=== PATIENT | female | born 1960 | race Caucasian/White ===

== ENCOUNTER 2018-05-30 14:15 | Outpatient (CLI) | payer BC | END 2018-05-30 14:30 | LOC: D.MAMMO 14:15 | DX: Z12.31 Encounter for screening mammogram for malignant neoplasm of breast (principal) ==

== ENCOUNTER 2018-08-26 23:44 | Emergency (ER) | payer BC ==
[~2018-08-26] VITALS: Ht 157.5 cm; Wt 59.1 kg
[2018-08-26 23:48] VITALS: Ht 157.5 cm; Wt 59.1 kg
[2018-08-26] MEDS ORDERED: PAXIL20 MG (23:50)
[2018-08-26] MEDS ORDERED: ALEVE220 MG PO (23:50)
[2018-08-26] MEDS ORDERED: INVOKANA100 MG (23:54)
[2018-08-27 00:24] LABS: BASOPHILS 0.3 % (0-2); EOSINOPHILS 1.8 % (0-7); IMMATURE GRANULOCYTES 0.6 % (0-5); LYMPHOCYTES 26.8 % (15-50); MCH 30.5 pg (26.0-34.0); MCHC 35.6 g/dL (31.0-37.0); MCV 85.9 fL (80.0-100.0); MEAN PLATELET VOLUME 10.6 fL (7.4-10.4); MONOCYTES 6.4 % (2-11); NEUTROPHILS 64.1 % (40-80); PLATELET COUNT 286 10x3/uL (130-400); RBC 5.24 10x6/uL (4.00-5.40); RDW 12.4 % (11.5-14.5); WBC 8.7 10x3/uL (4.8-10.8)
[2018-08-27 00:31] LABS: APPEARANCE CLEAR (CLEAR); BILIRUBIN NEGATIVE (NEGATIVE); COLOR STRAW (YELLOW); GLUCOSE 1000 mg/dL (NEGATIVE); KETONE SMALL mg/dL (NEGATIVE); NITRITE NEGATIVE (NEGATIVE); PROTEIN 2+ mg/dL (NEGATIVE); UROBILINOGEN NORMAL (NORMAL)
[2018-08-27 00:48] LABS: ALBUMIN 3.8 g/dL (3.4-5.0); ANION GAP 15.4 mmol/L (8-16); BILIRUBIN - TOTAL 0.76 mg/dL (0.2-1.3); CALCIUM 9.8 mg/dL (8.5-10.1); CARBON DIOXIDE 24.6 mmol/L (21.0-32.0); CREATININE - SERUM 1.2 mg/dL (0.6-1.3); PROTEIN - SERUM 8.2 g/dL (6.4-8.2)
[2018-08-27] MEDS ORDERED: PROTONIX40 MG PO (03:05)
[2018-08-27] MEDS ORDERED: ZOFRAN4 MG PO (03:05)
[2018-08-27 03:19] VITALS: BP 123/77
== END 2018-08-27 03:19 | disposition home or self-care (01) ==
LOC: D.ER 23:44
PROVIDERS: Family Medicine
DX: R11.10 Vomiting, unspecified (principal); T50.905A Adverse effect of unspecified drugs, medicaments and biological substances, initial encounter; Y92.019 Unspecified place in single-family (private) house as the place of occurrence of the external cause; E11.65 Type 2 diabetes mellitus with hyperglycemia

== ENCOUNTER → 2018-09-08 13:26 | Outpatient (CLI) | payer BC ==
[2018-08-26 23:48] VITALS: BMI 23.8
[~2018-09-08 13:26] MED LIST: ALEVE220 MG PO; INVOKANA100 MG; PAXIL20 MG; PROTONIX40 MG PO; ZOFRAN4 MG PO
== END | disposition home or self-care (01) ==
LOC: D.NM 13:26
DX: R10.9 Unspecified abdominal pain (principal)